=== PATIENT | male | born 1980 | race Caucasian/White ===

== ENCOUNTER 2019-03-14 18:49 | Emergency (ER) | payer SELFPAY ==
[2019-03-14] MEDS ORDERED: AMLODIPINE 5 MG TAB ONE ×2 (19:51→21:43)
[2019-03-14] MEDS ORDERED: DIPHENHYDRAMINE 50 MG/ML VIAL ONE (19:51)
[2019-03-14] MEDS ORDERED: METOCLOPRAMIDE 10 MG/2mL INJ ONE ×2 (19:51→21:50)
[2019-03-14 19:52] LABS: Absolute Lymphocytes (CBC) 1.5 K/uL (0.7-4.9); Basophils % 0.2 % (0-1.3); Eosinophils % 1.4 % (0-4.4); Hematocrit 47.4 % (39.6-49.0); Lymphocytes % 12.5 % (15.3-44.8); Monocytes % 5.1 % (3.3-12.3); RBC Red Blood Cell Count 5.64 M/uL (4.33-5.43)
[2019-03-14] MEDS ORDERED: NA CHLORIDE 0.9% 1,000 ML ONE (19:52)
[2019-03-14] MEDS ORDERED: KETOROLAC 30 MG/ML INJ ONE (19:52)
[2019-03-14 20:08] LABS: Albumin 4.1 g/dL (3.4-5.0); Bilirubin Total 0.8 mg/dL (0.2-1.0); Potassium 3.8 mmol/L (3.5-5.1); Protein, Total 7.6 g/dL (6.4-8.2); Troponin (Emerg Dept Use Only) 0.04 ng/mL (0.0-0.045)
--- NOTE | 2019-03-14 21:59 | EDPHYS ---
Physician Documentation [facility] Name: Quan Hernandez Age: 38 yrs Sex: Male : 1980 Arrival Date: 03/14/2019 Time: 18:51 Bed 15 Private MD: ED Physician Avis Fofana HPI: 03/14 21:53 This 38 yrs old Male presents to ER via Ambulatory with complaints of High ma2 Blood Pressure, Headache, Nausea. 21:53 This 38 yrs old Male presents to ER via Ambulatory with complaints of High ma2 Blood Pressure, Headache, Nausea. 21:53 Onset: The symptoms/episode began/occurred gradually, 2 day(s) ago. Modifying factors: ma2 The symptoms are alleviated by prescription meds. Associated signs and symptoms: Pertinent negatives: dizziness, headache, nausea, vomiting. Severity of symptoms: At its worst the blood pressure was moderate, in the emergency department the blood pressure is unchanged. The patient has experienced similar episodes in the past. headache gradual similar to previous headaches . Historical: - Allergies: 19:04 No Known Allergies; lp1 - Home Meds: 19:04 None [Active]; lp1 - PMHx: 19:04 Hypertension; lp1 - PSHx: 19:04 None; lp1 - Immunization history:: Adult Immunizations up to date. - Social history:: Smoking status: Patient/guardian denies using tobacco, Patient/guardian denies using alcohol, street drugs, The patient lives with family. - Ebola Screening: : No symptoms or risks identified at this time. - Family history:: not pertinent. ROS: 21:53 Constitutional: Negative for fever, chills, and weight loss, Eyes: Negative for injury, ma2 pain, redness, and discharge, Neck: Negative for injury, pain, and swelling, Cardiovascular: Negative for chest pain, palpitations, and edema, Respiratory: Negative for shortness of breath, cough, wheezing, and pleuritic chest pain, Abdomen/GI: Negative for abdominal pain, nausea, diarrhea, and constipation, Back: Negative for injury and pain, MS/Extremity: Negative for injury and deformity, Neuro: Negative for headache, weakness, numbness, tingling, and seizure, Psych: Negative for depression, anxiety, suicide ideation, homicidal ideation, and hallucinations, Allergy/Immunology: Negative for hives, rash, and allergies. Exam: 21:53 Constitutional: This is a well developed, well nourished patient who is awake, alert, ma2 and in no acute distress. Head/Face: Normocephalic, atraumatic. ENT: Nares patent. No nasal discharge, no septal abnormalities noted. Tympanic membranes are normal and external auditory canals are clear. Oropharynx with no redness, swelling, or masses, exudates, or evidence of obstruction, uvula midline. Mucous membranes moist. Neck: Trachea midline, no thyromegaly or masses palpated, and no cervical lymphadenopathy. Supple, full range of motion without nuchal rigidity, or vertebral point tenderness. No Meningismus. Chest/axilla: Normal chest wall appearance and motion. Nontender with no deformity. No lesions are appreciated. Cardiovascular: Regular rate and rhythm with a normal S1 and S2. No gallops, murmurs, or rubs. Normal PMI, no JVD. No pulse deficits. Respiratory: Lungs have equal breath sounds bilaterally, clear to auscultation and percussion. No rales, rhonchi or wheezes noted. No increased work of breathing, no retractions or nasal flaring. Abdomen/GI: Soft, non-tender, with normal bowel sounds. No distension or tympany. No guarding or rebound. No evidence of tenderness throughout. MS/ Extremity: Pulses equal, no cyanosis. Neurovascular intact. Full, normal range of motion. Neuro: Awake and alert, GCS 15, oriented to person, place, time, and situation. Cranial nerves II-XII grossly intact. Motor strength 5/5 in all extremities. Sensory grossly intact. Cerebellar exam normal. Normal gait. Vital Signs: 19:03 BP 222 / 114; Pulse 77; Resp 20; Temp 98.6(O); Pulse Ox 100% on R/A; Weight 172.37 kg; lp1 Height 6 ft. 3 in. (190.50 cm); Pain 8/10; 19:30 BP 204 / 120; Pulse 69; Resp 14; Pulse Ox 99% on R/A; jb4 20:16 BP 187 / 104; Pulse 69; Resp 17; Pulse Ox 99% on R/A; jb4 21:00 BP 201 / 101; Pulse 73; Resp 13; Pulse Ox 100% on R/A; jb4 21:58 BP 187 / 94; Pulse 73; Resp 13; Pulse Ox 99% on R/A; jb4 19:03 Body Mass Index 47.50 (172.37 kg, 190.50 cm) lp1 MDM: 19:06 Patient medically screened. ma2 21:53 Differential diagnosis: migraine headache vs caffeine withdrawal vs tension headache. ma2 Data reviewed: vital signs, nurses notes, old medical records, lab test result(s), radiologic studies. Counseling: I had a detailed discussion with the patient and/or guardian regarding: the historical points, exam findings, and any diagnostic results supporting the discharge/admit diagnosis, the presence of at least one elevated blood pressure reading (>120/80) during this emergency department visit, the need for outpatient follow up. Response to treatment: the patient's symptoms have markedly improved after treatment. ED course: patient headache resolved has hx of htn not taking his home meds, we lowered 30% off map, no end organ damage on lab, his symptoms resolved and want to go home . 03/14 19:31 Order name: CBC with Diff; Complete Time: 20:21 nh2 03/14 19:31 Order name: CMP; Complete Time: 20:21 nh2 03/14 19:31 Order name: Troponin (emerg Dept Use Only); Complete Time: 20:21 nh2 03/14 19:40 Order name: CT Head Brain wo Cont ma2 Administered Medications: 19:40 Drug: Norvasc 5 mg Route: PO; jb4 20:15 Follow up: Response: No adverse reaction; Blood pressure is lowered jb4 19:41 Drug: TORadol 30 mg Route: IVP; Site: right antecubital; jb4 20:55 Follow up: Response: No adverse reaction; Pain is decreased jb4 19:42 Drug: Benadryl 50 mg Route: IVP; Site: right antecubital; jb4 20:54 Follow up: Response: No adverse reaction; Pain is decreased jb4 19:43 Drug: Reglan 10 mg Route: IVP; Site: right antecubital; jb4 20:55 Follow up: Response: No adverse reaction; Pain is decreased jb4 19:45 Drug: NS 0.9% 1000 ml Route: IV; Rate: 1 bolus; Site: right antecubital; jb4 22:00 Follow up: Response: No adverse reaction; IV Status: Completed infusion; IV Intake: jb4 1000ml 21:30 Drug: Norvasc 5 mg Route: PO; jb4 22:15 Follow up: Response: No adverse reaction; Blood pressure is lowered jb4 21:43 Drug: Reglan 10 mg Route: IVP; Site: right antecubital; jb4 22:16 Follow up: Response: No adverse reaction jb4 22:15 Not Given (medication not available): Caffeine-Sodium Benzoate 500 mg IV at per jb4 protocol once Disposition: 03/14/19 21:58 Discharged to Home. Impression: Migraine without aura, Essential (primary) hypertension. - Condition is Stable. - Discharge Instructions: Hypertension. - Prescriptions for caffeine- sodium benzoate - take 1 tablet by ORAL route 4 times per day; 30 tablet. Norvasc 5 mg Oral Tablet - take 1 tablet by ORAL route once daily; 20 tablet. Reglan 10 mg Oral Tablet - take 1 tablet by ORAL route every 6 hours . take 30 minutes before meals and at bedtime; 100 tablet. - Medication Reconciliation Form, Thank You Letter, Antibiotic Education, Prescription Opioid Use form. - Follow up: Private Physician; When: Tomorrow; Reason: Continuance of care. Signatures: Dispatcher [employer] EDLoren Alaniz RN RN lp1 Darryl Skinner RN RN jb4 Avis Fofana MD MD ma2 Corrections: (The following items were deleted from the chart) 22:18 21:58 03/14/2019 21:58 Discharged to Home. Impression: Migraine without aura; Essential jb4 (primary) hypertension. Condition is Stable. Prescriptions for caffeine-sodium benzoate - take 1 tablet by ORAL route 4 times per day; 30 tablet, Norvasc 5 mg Oral Tablet - take 1 tablet by ORAL route once daily; 20 tablet, Reglan 10 mg Oral Tablet - take 1 tablet by ORAL route every 6 hours . take 30 minutes before meals and at bedtime; 100 tablet. and Forms are Medication Reconciliation Form, Thank You Letter, Antibiotic Education, Prescription Opioid Use. Follow up: Private Physician; When: Tomorrow; Reason: Continuance of care. ma2
--- NOTE | 2019-03-14 21:59 | ER ---
Nurse's Notes [facility] Name: Quan Hernandez Age: 38 yrs Sex: Male : 1980 Arrival Date: 03/14/2019 Time: 18:51 Bed 15 Private MD: Diagnosis: Migraine without aura;Essential (primary) hypertension Presentation: 03/14 19:02 Presenting complaint: Patient states: Just returning from vacation in [place], [facility] lp1 eating badly there and has had headache, high blood pressure, shortness of breath since Sunday; Took BP at home 222/122. Transition of care: patient was not received from another setting of care. Onset of symptoms was March 14, 2019. Risk Assessment: Do you want to hurt yourself or someone else? Patient reports no desire to harm self or others. Initial Sepsis Screen: Does the patient meet any 2 criteria? No. Patient's initial sepsis screen is negative. Does the patient have a suspected source of infection? No. Patient's initial sepsis screen is negative. Care prior to arrival: None. 19:02 Method Of Arrival: Ambulatory lp1 19:02 Acuity: DINESH 2 lp1 Historical: - Allergies: 19:04 No Known Allergies; lp1 - Home Meds: 19:04 None [Active]; lp1 - PMHx: 19:04 Hypertension; lp1 - PSHx: 19:04 None; lp1 - Immunization history:: Adult Immunizations up to date. - Social history:: Smoking status: Patient/guardian denies using tobacco, Patient/guardian denies using alcohol, street drugs, The patient lives with family. - Ebola Screening: : No symptoms or risks identified at this time. - Family history:: not pertinent. Screenin:04 Abuse screen: Denies threats or abuse. Denies injuries from another. Nutritional lp1 screening: No deficits noted. Tuberculosis screening: No symptoms or risk factors identified. Fall Risk None identified. Assessment: 19:10 General: Appears in no apparent distress. uncomfortable, Behavior is calm, cooperative, jb4 appropriate for age. Pain: Complains of pain in headache. Pain does not radiate. Pain currently is 8 out of 10 on a pain scale. Quality of pain is described as throbbing. Neuro: Level of Consciousness is awake, alert, obeys commands, Oriented to person, place, time, situation. Cardiovascular: Heart tones S1 S2 present Patient's skin is warm and dry. Respiratory: Airway is patent Respiratory effort is even, unlabored, Respiratory pattern is regular, symmetrical, Breath sounds are clear. GI: Reports nausea. : No signs and/or symptoms were reported regarding the genitourinary system. EENT: No signs and/or symptoms were reported regarding the EENT system. Derm: Skin is intact, Skin is pink, warm \T\ dry. Musculoskeletal: Circulation, motion, and sensation intact. Range of motion: intact in all extremities. 19:55 Reassessment: Pt to CT. jb4 20:17 Reassessment: Patient appears in no apparent distress at this time. Patient and/or jb4 family updated on plan of care and expected duration. Pain level reassessed. Patient is alert, oriented x 3, equal unlabored respirations, skin warm/dry/pink. PT is back in bed resting with family at the bedside. 20:53 Reassessment: Patient appears in no apparent distress at this time. Patient and/or jb4 family updated on plan of care and expected duration. Pain level reassessed. Patient is alert, oriented x 3, equal unlabored respirations, skin warm/dry/pink. Patient states feeling better. 21:05 Reassessment: Pt's blood pressure increased to 201/101, provider notified, see MAR for jb4 orders. 22:14 Reassessment: Patient appears in no apparent distress at this time. Patient and/or jb4 family updated on plan of care and expected duration. Pain level reassessed. Patient is alert, oriented x 3, equal unlabored respirations, skin warm/dry/pink. PT left ED ambulatory with steady gait, verbalized understanding of d/c and follow up instructions. Patient states feeling better. Vital Signs: 19:03 BP 222 / 114; Pulse 77; Resp 20; Temp 98.6(O); Pulse Ox 100% on R/A; Weight 172.37 kg; lp1 Height 6 ft. 3 in. (190.50 cm); Pain 8/10; 19:30 BP 204 / 120; Pulse 69; Resp 14; Pulse Ox 99% on R/A; jb4 20:16 BP 187 / 104; Pulse 69; Resp 17; Pulse Ox 99% on R/A; jb4 21:00 BP 201 / 101; Pulse 73; Resp 13; Pulse Ox 100% on R/A; jb4 21:58 BP 187 / 94; Pulse 73; Resp 13; Pulse Ox 99% on R/A; jb4 19:03 Body Mass Index 47.50 (172.37 kg, 190.50 cm) lp1 ED Course: 18:51 Patient arrived in ED. rg4 18:55 Darryl Skinner, RN is Primary Nurse. jb4 19:03 Triage completed. lp1 19:03 Arm band placed on. lp1 19:06 Avis Fofana MD is Attending Physician. ma2 19:10 Patient has correct armband on for positive identification. Bed in low position. Call jb4 light in reach. Side rails up X 1. monitoring and evaluation advisor on. Pulse ox on. NIBP on. 19:20 Inserted saline lock: 22 gauge in right antecubital area, using aseptic technique. jb4 Blood collected. 19:20 Initial lab(s) drawn, by ED staff, sent to lab. jb4 20:20 CT Head Brain wo Cont In Process Unspecified. EDMS 22:13 No provider procedures requiring assistance completed. IV discontinued, intact, jb4 bleeding controlled. Administered Medications: 19:40 Drug: Norvasc 5 mg Route: PO; jb4 20:15 Follow up: Response: No adverse reaction; Blood pressure is lowered jb4 19:41 Drug: TORadol 30 mg Route: IVP; Site: right antecubital; jb4 20:55 Follow up: Response: No adverse reaction; Pain is decreased jb4 19:42 Drug: Benadryl 50 mg Route: IVP; Site: right antecubital; jb4 20:54 Follow up: Response: No adverse reaction; Pain is decreased jb4 19:43 Drug: Reglan 10 mg Route: IVP; Site: right antecubital; jb4 20:55 Follow up: Response: No adverse reaction; Pain is decreased jb4 19:45 Drug: NS 0.9% 1000 ml Route: IV; Rate: 1 bolus; Site: right antecubital; jb4 22:00 Follow up: Response: No adverse reaction; IV Status: Completed infusion; IV Intake: jb4 1000ml 21:30 Drug: Norvasc 5 mg Route: PO; jb4 22:15 Follow up: Response: No adverse reaction; Blood pressure is lowered jb4 21:43 Drug: Reglan 10 mg Route: IVP; Site: right antecubital; jb4 22:16 Follow up: Response: No adverse reaction jb4 22:15 Not Given (medication not available): Caffeine-Sodium Benzoate 500 mg IV at per jb4 protocol once Intake: 22:00 IV: 1000ml; Total: 1000ml. jb4 Outcome: 21:58 Discharge ordered by . joel 22:14 Discharged to home ambulatory. jb4 22:14 Condition: stable 22:14 Discharge instructions given to patient, Instructed on discharge instructions, follow up and referral plans. medication usage, Demonstrated understanding of instructions, follow-up care, medications, Prescriptions given X 3. 22:18 Patient left the ED. jb4 Signatures: Dispatcher [employer] EDMS Loren Rodriguez, RN RN [email or web address] Sirisha Gleason rg4 Darryl Skinner RN RN jb4 Avis Fofana MD MD ma
--- NOTE | 2019-03-15 07:46 | EKG ---
Test Date: 2019-03-14 Test Time: 19:11:28 Telecommunication Systems Designer: TONE MEASUREMENT RESULTS: Intervals: Rate: 67 AL: 136 QRSD: 104 QT: 430 QTc: 454 [place]: P: 48 AL: 136 QRS: -13 T: 146 INTERPRETIVE STATEMENTS: Normal sinus rhythm Possible Left atrial enlargement Left ventricular hypertrophy with repolarization abnormality Abnormal ECG No previous ECG available for comparison Electronically Signed On 03-15-19 07:45:54 CDT by Abhilash Sanon
--- NOTE | 2019-03-17 13:39 | RAD REPORT ---
EXAM DESCRIPTION: CT - Head Brain Wo Cont - 03/14/2019 9:51 pm CLINICAL HISTORY: 38 years Male PAIN COMPARISON: None TECHNIQUE: Images were obtained in axial, sagittal, and coronal planes. This exam was performed according to our departmental dose-optimization program which includes use of Automated Exposure Control, adjustment of the mA and/or kV according to patient size and/or use of i terative reconstruction technique. FINDINGS: Ventricular system appears normal. No abnormal areas of increased or decreased attenuation are seen involving the brain parenchyma. No e xtra-axial fluid collections noted. Marked mucosal thickening left maxillary antrum. Inspissated mucous versus blood products present. Ad ditional mucosal thickening inferior left frontal and left ethmoid sinuses. Symmetric aeration mastoi d air cells bilaterally. No evidence for skull fracture. IMPRESSION: No acute intracranial abnormality. No evidence for hemorrhage, mass lesion, or large acu te infarction. Paranasal sinus disease most pronounced involving the left maxillary antrum. 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 Electronically signed by: Cassandra Dukes MD 03/14/2019 8:25 PM CDT Due to temporary technical issues with the PACS/Fluency reporting system, reports are being signed by the in house radiologist as a courtesy to ensure prompt reporting. The interpreting radiologist is f ully responsible for the content of the report.
== END 2019-03-14 22:18 | disposition home or self-care (01) ==
LOC: ER 18:49
DX: G43.009 Migraine without aura, not intractable, without status migrainosus (principal); I10 Essential (primary) hypertension
CPT/HCPCS: 36415; 70450; 80053; 84484; 85025; 93005; 96361; 96374; 96375; 99284; J2765; J7030

== ENCOUNTER 2020-10-24 19:03 | Inpatient (IN) | payer SELFPAY ==
[2020-10-24 20:01] LABS: Absolute Lymphocytes (CBC) 2.1 K/uL (0.7-4.9); Basophils % 0.5 % (0-1.3); Hematocrit 46.7 % (39.6-49.0); Lymphocytes % 17.2 % (15.3-44.8); MPV 10.1 fL (7.6-11.3); RBC Red Blood Cell Count 5.48 M/uL (4.33-5.43)
[2020-10-24] MEDS ORDERED: DIPHENHYDRAMINE 50 MG/ML VIAL ONE (20:20)
[2020-10-24] MEDS ORDERED: METOCLOPRAMIDE 10 MG/2mL INJ ONE (20:20)
[2020-10-24 20:21] LABS: Albumin 3.9 g/dL (3.4-5.0); Bilirubin Direct 0.1 mg/dL (0-0.2); Bilirubin Total 0.3 mg/dL (0.2-1.0); Magnesium 2.4 mg/dL (1.8-2.4); Potassium 3.8 mmol/L (3.5-5.1); Protein, Total 7.6 g/dL (6.4-8.2); Troponin (Emerg Dept Use Only) 0.05 ng/mL (0.0-0.045)
[2020-10-24 20:23] LABS: Protime INR 0.92
[2020-10-24 20:44] LABS: Urine Blood TRACE (NEG); Urine Glucose NEGATIVE (NEG); Urine Protein TRACE (NEG); Urine Specific Gravity 1.025 (1.005-1.030)
--- NOTE | 2020-10-24 20:45 | RAD REPORT ---
EXAM DESCRIPTION: CT - Head Brain Wo Cont - 10/24/2020 8:35 pm CLINICAL HISTORY: Headache COMPARISON: 2019 TECHNIQUE: Computed axial tomography of the head was obtained. IV contrast was not requested. All CT scans are performed using dose optimization technique as appropriate and may include automated exposure control or mA/KV adjustment according to patient size. FINDINGS: An intracranial bleed is not seen . The ventricles are normal in caliber. No extra-axial fluid collection is noted. Fluid within the sinuses/ mastoids is not seen. Mucus retention cysts left maxillary sinus IMPRESSION: No acute intracranial abnormality is seen. If patient's symptoms persist MRI of the bra in would be recommended.
[2020-10-24] MEDS ORDERED: NITROGLYCERIN 1 GM PKT TD ONE (20:55)
[2020-10-24 20:56] LABS: Barbiturates NEGATIVE (NEGATIVE); Benzodiazepines NEGATIVE (NEGATIVE); Cocaine NEGATIVE (NEGATIVE); METHAMPHETAM NEGATIVE (NEGATIVE); Methadone NEGATIVE (NEGATIVE); Opiates NEGATIVE (NEGATIVE); Phencyclidine NEGATIVE (NEGATIVE); THC Cannibis NEGATIVE (NEGATIVE)
--- NOTE | 2020-10-24 21:07 | RAD REPORT ---
EXAM DESCRIPTION: Jeb Single View10/24/2020 8:50 pm CLINICAL HISTORY: Chest pain COMPARISON: none FINDINGS: The lungs appear clear of acute infiltrate. The heart is normal size IMPRESSION: No acute abnormalities displayed
[2020-10-24] MEDS ORDERED: ASPIRIN 81 MG CHEWABLE TABLET ONE (22:04)
[2020-10-24] MEDS ORDERED: ACETAMINOPHEN 500 MG TAB PO PRN (22:07)
--- NOTE | 2020-10-24 22:07 | EDPHYS ---
Physician Documentation [facility] Name: Quan Hernandez Age: 39 yrs Sex: Male : 1980 Arrival Date: 10/24/2020 Time: 19:06 Bed 13 Private MD: ED Physician Patricio David HPI: 10/24 20:01 This 39 yrs old Male presents to ER via Ambulatory with complaints of High mh7 Blood Pressure, Chest Pain. 20:02 The patient has elevated blood pressure and discovered this at home, with a home mh7 device. Onset: The symptoms/episode began/occurred 6 day(s) ago. Modifying factors: The symptoms are aggravated by discontinuation of meds, unknown, hasn't taken for 6 weeks- 2 months, The symptoms are alleviated by nothing. Hasn't taken any medication.. Associated signs and symptoms: Pertinent positives: chest pain, headache, Pertinent negatives: dizziness, dyspnea, lightheadedness, nausea, visual changes, vomiting, weakness. Severity of symptoms: At its worst the blood pressure was severe, earlier today, 224 mm Hg, in the emergency department the blood pressure is unchanged. The patient has experienced similar episodes in the past, multiple times. Historical: - Allergies: 19:20 No Known Allergies; ll1 - PMHx: 19:15 Hypertension; ll1 - PSHx: 19:15 None; ll1 - Immunization history:: Flu vaccine is not up to date. - Social history:: Smoking status: Patient denies any tobacco usage or history of. ROS: 20:02 Constitutional: Negative for fever, chills, and weight loss, Eyes: Negative for injury, mh7 pain, redness, and discharge, ENT: Negative for injury, pain, and discharge, Neck: Negative for injury, pain, and swelling, Respiratory: Negative for shortness of breath, cough, wheezing, and pleuritic chest pain, Abdomen/GI: Negative for abdominal pain, nausea, vomiting, diarrhea, and constipation, Back: Negative for injury and pain, : Negative for injury, bleeding, discharge, and swelling, MS/Extremity: Negative for injury and deformity, Skin: Negative for injury, rash, and discoloration, Psych: Negative for depression, anxiety, suicide ideation, homicidal ideation, and hallucinations, Allergy/Immunology: Negative for hives, rash, and allergies, Endocrine: Negative for neck swelling, polydipsia, polyuria, polyphagia, and marked weight changes, Hematologic/Lymphatic: Negative for swollen nodes, abnormal bleeding, and unusual bruising. Exam: 20:02 Constitutional: This is a well developed, well nourished patient who is awake, alert, mh7 and in no acute distress. Head/Face: Normocephalic, atraumatic. Eyes: Pupils equal round and reactive to light, extra-ocular motions intact. Lids and lashes normal. Conjunctiva and sclera are non-icteric and not injected. Cornea within normal limits. Periorbital areas with no swelling, redness, or edema. Neck: Trachea midline, no thyromegaly or masses palpated, and no cervical lymphadenopathy. Supple, full range of motion without nuchal rigidity, or vertebral point tenderness. No Meningismus. Chest/axilla: Normal chest wall appearance and motion. Nontender with no deformity. No lesions are appreciated. Cardiovascular: Regular rate and rhythm with a normal S1 and S2. No gallops, murmurs, or rubs. Normal PMI, no JVD. No pulse deficits. Respiratory: Lungs have equal breath sounds bilaterally, clear to auscultation and percussion. No rales, rhonchi or wheezes noted. No increased work of breathing, no retractions or nasal flaring. Abdomen/GI: Soft, non-tender, with normal bowel sounds. No distension or tympany. No guarding or rebound. No evidence of tenderness throughout. Back: No spinal tenderness. No costovertebral tenderness. Full range of motion. Skin: Warm, dry with normal turgor. Normal color with no rashes, no lesions, and no evidence of cellulitis. MS/ Extremity: Pulses equal, no cyanosis. Neurovascular intact. Full, normal range of motion. Neuro: Awake and alert, GCS 15, oriented to person, place, time, and situation. Cranial nerves II-XII grossly intact. Motor strength 5/5 in all extremities. Sensory grossly intact. Cerebellar exam normal. Normal gait. Psych: Awake, alert, with orientation to person, place and time. Behavior, mood, and affect are within normal limits. Vital Signs: 19:16 BP 253 / 121; Pulse 76; Resp 18; Temp 97.8; Pulse Ox 98% ; Weight 183.7 kg; Height 6 ll1 ft. 3 in. (190.50 cm); Pain 9/10; 19:30 BP 244 / 138; Pulse 76; Resp 20; Pulse Ox 99% on R/A; vg1 20:24 BP 207 / 119; ll1 21:00 BP 226 / 127; Pulse 66; Resp 26; Pulse Ox 98% on R/A; vg1 21:20 BP 226 / 120; Pulse 70; Resp 26; Pulse Ox 98% on R/A; vg1 19:16 Body Mass Index 50.62 (183.70 kg, 190.50 cm) 1 MDM: 22:03 Differential diagnosis: hypertensive crisis, Malignant HTN, intracerebral hemorrhage. [facility] Data reviewed: vital signs, nurses notes, old medical records, lab test result(s), cardiac enzymes, CBC, electrolytes, urinalysis, urine drug screen, EKG, radiologic studies, CT scan, plain films. Data interpreted: Pulse oximetry: on room air is 98 %. Interpretation: normal. Counseling: I had a detailed discussion with the patient and/or guardian regarding: the historical points, exam findings, and any diagnostic results supporting the discharge/admit diagnosis, the presence of at least one elevated blood pressure reading (>120/80) during this emergency department visit, lab results, the need for further work-up and treatment in the hospital. Response to treatment: the patient's symptoms have mildly improved after treatment. 22:06 Patient medically screened. [facility] 10/24 19:49 Order name: Basic Metabolic Panel [facility] 10/24 19:49 Order name: CBC with Diff [facility] 10/24 19:49 Order name: LFT's; Complete Time: 20:24 [facility] 10/24 19:49 Order name: Magnesium; Complete Time: 20:24 [facility] 10/24 19:49 Order name: NT PRO-BNP; Complete Time: 20:24 [facility] 10/24 19:49 Order name: PT-INR; Complete Time: 21:18 [facility] 10/24 19:49 Order name: Troponin (emerg Dept Use Only); Complete Time: 20:24 [facility] 10/24 19:49 Order name: CPK; Complete Time: 20:24 [facility] 10/24 19:49 Order name: UDS; Complete Time: 21:18 [facility] 10/24 19:50 Order name: Basic Metabolic Panel; Complete Time: 20:24 [facility] 10/24 19:50 Order name: CBC with Automated Diff; Complete Time: 20:24 [facility] 10/24 20:37 Order name: Urine Dipstick--Ancillary (enter results); Complete Time: 21:18 2 10/24 22:11 Order name: CKMB Creatine Kinase MB [facility] 10/24 22:11 Order name: CKMB Creatine Kinase MB [facility] 10/24 22:12 Order name: CBC with Automated Diff [facility] 10/24 22:12 Order name: CBC with Automated Diff [facility] 10/24 22:12 Order name: CKMB Creatine Kinase MB [facility] 10/24 22:12 Order name: CKMB Creatine Kinase MB [facility] 10/24 22:12 Order name: Comprehensive Metabolic Panel [facility] 10/24 22:12 Order name: Comprehensive Metabolic Panel [facility] 10/24 22:12 Order name: Lipid Profile [facility] 10/24 22:12 Order name: Lipid Profile [facility] 10/24 22:12 Order name: Troponin I [facility] 10/24 22:12 Order name: Troponin I [facility] 10/24 22:12 Order name: Troponin I [facility] 10/24 22:13 Order name: Urinalysis [facility] 10/24 22:15 Order name: CORONAVIRUS [facility] 10/24 23:13 Order name: SARS-COV-2 RT PCR [facility] 10/25 05:40 Order name: CKMB Creatine Kinase MB [facility] 10/25 05:40 Order name: Troponin I [facility] 10/24 19:49 Order name: XRAY Chest (1 view); Complete Time: 21:18 [facility] 10/24 19:49 Order name: EKG; Complete Time: 19:50 [facility] 10/24 19:49 Order name: Cardiac monitoring; Complete Time: 19:53 [facility] 10/24 19:49 Order name: EKG - Nurse/Tech; Complete Time: 19:53 [facility] 10/24 19:49 Order name: IV Saline Lock; Complete Time: 19:53 10/24 19:49 Order name: Labs collected and sent; Complete Time: 19:53 [facility] 10/24 19:49 Order name: O2 Per Protocol; Complete Time: 19:53 [facility] 10/24 19:49 Order name: O2 Sat Monitoring; Complete Time: 19:54 10/24 19:49 Order name: Urine Dipstick-Ancillary (obtain specimen); Complete Time: 20:36 [facility] 10/24 19:53 Order name: CT Head Brain wo Cont; Complete Time: 21:18 [facility] 10/24 22:12 Order name: CONS Pharmacy Consult [facility] 10/24 22:12 Order name: [facility] 10/25 07:44 Order name: Manual Differential [facility] 10/25 16:43 Order name: CT [facility] 10/25 18:37 Order name: Troponin I [facility] Administered Medications: 20:09 Drug: Benadryl 50 mg Route: IVP; Site: right antecubital; ea 20:09 Drug: Tylenol 1000 mg Route: PO; ea 20:10 Drug: Reglan 10 mg Route: IVP; Site: right antecubital; ea 20:45 Drug: Nitro-Bid Ointment 2 % 1 inches Route: Transdermal; Site: anterior chest wall; vg1 21:50 Drug: Aspirin Chewable Tablet 324 mg Route: PO; ea Disposition: 10/24/20 22:06 Hospitalization ordered by Jimi Best for Observation. Preliminary diagnosis are Chest pain, unspecified, Headache, Uncontrolled Hypertension. - Bed requested for [facility] ER HOLD. - Status is Observation. iw - Condition is Stable. - Problem is new. - Symptoms have improved. Signatures: Dispatcher [employer] [facility] Shantel Arteaga RN Dina Love RN [place] RN Jessy Alfaro ea RN MARTY [email or web address] Steve Cote RN RN 1 Patricio David MD MD [facility] Corrections: (The following items were deleted from the chart) 22:07 22:06 Hospitalization Ordered by Jimi Best MD for Observation. Preliminary mw diagnosis is Chest pain, unspecified; Headache; Uncontrolled Hypertension. Bed requested for Telemetry/MedSurg (observation). Status is Observation. Condition is Stable. Problem is new. Symptoms have improved. [facility] 10/26 09:35 10/24 22:07 10/24/2020 22:06 Hospitalization Ordered by Jimi Best MD for iw Observation. Preliminary diagnosis is Chest pain, unspecified; Headache; Uncontrolled Hypertension. Bed requested for [facility] ER HOLD. Status is Observation. Condition is Stable. Problem is new. Symptoms have improved. mw
--- NOTE | 2020-10-24 22:07 | ER ---
Nurse's Notes [facility] Name: Quan Hernandez Age: 39 yrs Sex: Male : 1980 Arrival Date: 10/24/2020 Time: 19:06 Bed 13 Private MD: Diagnosis: Chest pain, unspecified;Headache;Uncontrolled Hypertension Presentation: 10/24 19:16 Chief complaint: Patient states: HTN, OLEARY, and CP for 6 days. BP at home 224/124. out OF ll1 MEDS FOR 6 WEEKS. Coronavirus screen: Client denies travel out of the [place] in the last 14 days. Ebola Screen: Patient denies travel to an Ebola-affected area in the 21 days before illness onset. Initial Sepsis Screen: Does the patient meet any 2 criteria? No. Patient's initial sepsis screen is negative. Initial Sepsis Screen: Does the patient have a suspected source of infection? No. Patient's initial sepsis screen is negative. Risk Assessment: Do you want to hurt yourself or someone else? Patient reports no desire to harm self or others. Onset of symptoms was October 18, 2020. 19:16 Method Of Arrival: Ambulatory ll1 19:16 Acuity: DINESH 3 ll1 Historical: - Allergies: 19:20 No Known Allergies; ll1 - PMHx: 19:15 Hypertension; ll1 - PSHx: 19:15 None; ll1 - Immunization history:: Flu vaccine is not up to date. - Social history:: Smoking status: Patient denies any tobacco usage or history of. Screenin:32 Abuse screen: Denies threats or abuse. Nutritional screening: No deficits noted. ea Tuberculosis screening: No symptoms or risk factors identified. Fall Risk IV access (20 points). Assessment: 19:28 General: Appears in no apparent distress. comfortable, Behavior is calm, cooperative. vg1 Pain: Complains of pain in headache Pain began Sunday10/18/20. Neuro: Level of Consciousness is awake, alert, obeys commands, Oriented to person, place, time, situation. Cardiovascular: Patient's skin is warm and dry. Rhythm is sinus rhythm. Respiratory: Airway is patent Respiratory effort is even, unlabored, Respiratory pattern is regular, symmetrical. GI: No signs and/or symptoms were reported involving the gastrointestinal system. : No signs and/or symptoms were reported regarding the genitourinary system. EENT: No signs and/or symptoms were reported regarding the EENT system. Derm: Skin is intact, is healthy with good turgor. Musculoskeletal: Circulation, motion, and sensation intact. 21:25 Reassessment: No changes from previously documented assessment. Patient and/or family vg1 updated on plan of care and expected duration. Pain level reassessed. Patient is alert, oriented x 3, equal unlabored respirations, skin warm/dry/pink. 10/25 03:00 Pain: Pain does not radiate. wh Vital Signs: 10/24 19:16 BP 253 / 121; Pulse 76; Resp 18; Temp 97.8; Pulse Ox 98% ; Weight 183.7 kg; Height 6 ll1 ft. 3 in. (190.50 cm); Pain 9/10; 19:30 BP 244 / 138; Pulse 76; Resp 20; Pulse Ox 99% on R/A; vg1 20:24 BP 207 / 119; ll1 21:00 BP 226 / 127; Pulse 66; Resp 26; Pulse Ox 98% on R/A; vg1 21:20 BP 226 / 120; Pulse 70; Resp 26; Pulse Ox 98% on R/A; vg1 19:16 Body Mass Index 50.62 (183.70 kg, 190.50 cm) ll1 ED Course: 19:06 Patient arrived in ED. bp1 19:15 Arm band placed on. ll1 19:20 Triage completed. ll1 19:20 Patient placed in an exam room, on a stretcher. ll1 19:26 Patricio David MD is Attending Physician. 7 19:26 Jessy Gleason, MARTY is Primary Nurse. vg1 19:30 EKG done, by ED staff, reviewed by Patricio David MD. jp3 19:32 Inserted saline lock: 20 gauge in right antecubital area, using aseptic technique. ea 20:01 Patient has correct armband on for positive identification. Placed in gown. Bed in low vg1 position. Call light in reach. Side rails up X2. telemetry monitor on. Pulse ox on. NIBP on. 20:34 CT Head Brain wo Cont In Process Unspecified. EDMS 20:36 Urine collected: clean catch specimen, clear. em 20:50 XRAY Chest (1 view) In Process Unspecified. EDMS 22:04 Jimi Best MD is Hospitalizing Provider. 7 22:23 COVID swab sent to lab. jp3 10/25 03:00 No provider procedures requiring assistance completed. IV discontinued, intact, wh bleeding controlled, No redness/swelling at site. Patient maintains SpO2 saturation greater than 95% on room air. 08:17 Primary Nurse role handed off by Jessy Gleason RN bd Administered Medications: 10/24 20:09 Drug: Benadryl 50 mg Route: IVP; Site: right antecubital; ea 20:09 Drug: Tylenol 1000 mg Route: PO; ea 20:10 Drug: Reglan 10 mg Route: IVP; Site: right antecubital; ea 20:45 Drug: Nitro-Bid Ointment 2 % 1 inches Route: Transdermal; Site: anterior chest wall; vg1 21:50 Drug: Aspirin Chewable Tablet 324 mg Route: PO; ea Outcome: 22:06 Decision to Hospitalize by Provider. mh7 10/25 03:00 Admitted to ER Hold. Please see [facility] for further documentation. Condition: stable Instructed on the need for admit. 10/26 09:35 Patient left the ED. iw Signatures: Dispatcher [employer] EDMS Concepcion Rodriguez Edgar, RN Dina Dodge RN MARTY [place] RN RN ea Habalo, Winsy, RN RN wh Pisarski, Jacob 3 Jessy Gleason RN RN vg1 Steve Cote RN RN ll1 Rebeka Ley Maurice, MD MD [facility]
--- NOTE | 2020-10-24 22:16 | P.HP ---
Certification for Inpatient Patient admitted to: Observation With expected LOS: <2 Midnights Practitioner: I am a practitioner with admitting privileges, knowledge of patient current condition, hospital course, and medical plan of care. Services: Services provided to patient in accordance with Admission requirements found in Title 42 Section 412.3 of the Code of Federal Regulations Patient History Date of Service: 10/24/20 Reason for admission: Chest Pain History of Present Illness: 39-year-old male with past medical history hypertension came to ER wi th chest discomfort and high blood pressure. Chest pain is pressure-like retrosternal nonradiating not associated with any diaphoresis started 6 days ago, intermittent and has been associated with a headache. Denies any nausea vomiting or diarrhea. No fever or chills. No sick contacts. Denies any previous history of CAD. Has been noncompliant with his blood pressure medications, patient has been assessed in the ER and was admitted for further management as well troponins were slightly elevated. Patient was seen and examined and findings were discussed with the patient. his vitals showed accelerated hypertension and has been admitted to rule out ACS Allergies NKDA Allergy (Uncoded 08/06/15 05:10) Unknown - Past Medical/Surgical History Past Medical History: Reviewed- Non-Contributory Past Surgical History: Reviewed- Non-Contributory Review of Systems 10-point ROS is otherwise unremarkable Physical Examination - Vital Signs Temperature: 97.6 F Blood Pressure: 212/108 Pulse: 62 Respirations: 18 - Physical Exam General: Alert, Oriented x3, Obese HEENT: Atraumatic, Normocephalic Neck: Supple, 2+ carotid pulse no bruit Respiratory: Clear to auscultation bilaterally, Normal air movement Cardiovascular: Regular rate/rhythm, Normal S1 S2 Capillary refill: <2 Seconds Gastrointestinal: Soft and benign, W/out hepatosplenomegaly Musculoskeletal: No clubbing, No swelling Integumentary: No rashes, No breakdown Neurological: Normal speech, Normal strength at 5/5 x4 extr Lymphatics: No axilla or inguinal lymphadenopathy - Studies Laboratory Data (last 24 hrs) 10/24/20 19:50: PT 10.9, INR 0.92 10/24/20 19:50: WBC 12.00 H, Hgb 15.4, Hct 46.7, Plt Count 217 10/24/20 19:50: Sodium 140, Potassium 3.8, BUN 18, Creatinine 1.63 H, Glucose 113 H, Magnesium 2.4, Total Bilirubin 0.3, AST 17, ALT 29, Alkaline Phosphatase 84 Assessment and Plan - Problems (Diagnosis) (1) NSTEMI (non-ST elevated myocardial infarction) Current Visit: Yes Status: Acute Plan: Monitor under telemetry possibly type 2 due to elevated blood pressure Trend cardiac enzymes started on aspirin statin Will get an echocardiogram and consult cardiology if troponin is still elevated (2) Chest pain Current Visit: Yes Status: Acute Plan: Chest pain to rule out ACS monitor under telemetry On aspirin and statin may need stress test possibly as an outpatient EKG shows LVH with strain pattern (3) Accelerated hypertension Current Visit: Yes Status: Acute Plan: Start on antihypertensives Titrated as needed hydralazine p.r.n. Monitor closely (4) Obesity Current Visit: Yes Status: Chronic Plan: Advised lifestyle modification will get a lipid panel and A1c - Plan Elevated BNP Awaiting echocardiogram Start on diuretics Acute renal insufficiency Avoid nephrotoxic medications Will hold JAROD inhibitors or ARB Monitor renal parameters GI/DVT prophylaxis Discharge Plan: Home Plan to discharge in: 24 Hours - Advance Directives Does patient have a Living Will: No Does patient have a Durable POA for Healthcare: No Time Spent Managing Pts Care (In Minutes): 42
[2020-10-24] MEDS: AMLODIPINE 10 MG TAB PO SCH (22:45)
[2020-10-24] MEDS: HYDRALAZINE HCL 25 MG TABLET PO SCH (22:46)
[2020-10-24] MEDS ORDERED: HYDRALAZINE HCL 20 MG/ML VIAL ONE (22:55)
[2020-10-24] MEDS: FUROSEMIDE 20 MG/ 2ML VIAL IV SCH (23:18)
[2020-10-25] MEDS ORDERED: HYDRALAZINE HCL 20 MG/ML VIAL IV ONE (00:12)
[2020-10-25] MEDS: MORPHINE 2 MG/ML SYR IV PRN ×3 (00:13→16:06)
[2020-10-25] MEDS: ONDANSETRON 4 MG/2 ML VIAL IV PRN ×2 (00:14→16:06)
[2020-10-25] MEDS: HYDRALAZINE HCL 20 MG/ML VIAL IV PRN ×2 (00:16→16:11)
[2020-10-25] MEDS ORDERED: MORPHINE 4 MG/ML SYR ONE (00:16)
[2020-10-25] MEDS ORDERED: ONDANSETRON 4 MG/2 ML VIAL ONE ×2 (00:17→16:12)
[2020-10-25] MEDS ORDERED: AMLODIPINE 10 MG TAB ONE ×2 (00:43→08:34)
[2020-10-25] MEDS ORDERED: HYDRALAZINE HCL 10 MG TABLET ONE ×2 (00:43→23:37)
[2020-10-25] MEDS ORDERED: FUROSEMIDE 20 MG/ 2ML VIAL ONE ×2 (00:43→08:34)
[2020-10-25 01:55] LABS: CKMB Creatine Kinase MB 2.4 ng/mL (0.3-3.6); Troponin I 0.04 ng/mL (0.0-0.045)
[2020-10-25 05:13] LABS: Absolute Lymphocytes (CBC) 1.2 K/uL (0.7-4.9); Basophils % 0.5 % (0-1.3); Hematocrit 47.9 % (39.6-49.0); Lymphocytes % 8.7 % (15.3-44.8); MPV 9.7 fL (7.6-11.3); RBC Red Blood Cell Count 5.65 M/uL (4.33-5.43)
[2020-10-25 05:40] LABS: Albumin 3.9 g/dL (3.4-5.0); Bilirubin Total 0.6 mg/dL (0.2-1.0); CKMB Creatine Kinase MB 2.2 ng/mL (0.3-3.6); Potassium 4.1 mmol/L (3.5-5.1); Protein, Total 7.7 g/dL (6.4-8.2); Troponin I 0.03 ng/mL (0.0-0.045)
[2020-10-25 07:44] LABS: Blood Morphology Comment NOT SEEN (NOT SEEN); Platelet Estimate ADEQ
--- NOTE | 2020-10-25 08:19 | EKG ---
Test Date: 2020-10-24 Test Time: 19:34:07 Dental Treatment Coordinator: JAVON MEASUREMENT RESULTS: Intervals: Rate: 71 ND: 144 QRSD: 106 QT: 430 QTc: 467 [place]: P: 64 ND: 144 QRS: 5 T: 120 INTERPRETIVE STATEMENTS: Normal sinus rhythm Right atrial enlargement Left ventricular hypertrophy with repolarization abnormality Abnormal ECG Compared to ECG 03/14/2019 19:11:28 No significant changes Electronically Signed On 10-25-20 08:17:38 [employer] DIP[employer] by Abhilash Sanon
[2020-10-25] MEDS ORDERED: ASPIRIN EC 81 MG TAB PO ONE (08:34)
[2020-10-25] MEDS ORDERED: ENOXAPARIN 40 MG/0.4 ML SQ ONE (08:35)
[2020-10-25] MEDS ORDERED: MORPHINE 2 MG/ML SYR ONE ×2 (08:56→16:09)
[2020-10-25] MEDS ORDERED: ASPIRIN EC 81 MG TAB PO SCH (09:00)
[2020-10-25] MEDS: FUROSEMIDE 20 MG/ 2ML VIAL IV SCH (09:00)
[2020-10-25] MEDS: HYDRALAZINE HCL 25 MG TABLET PO SCH ×3 (09:00→23:25)
[2020-10-25] MEDS: AMLODIPINE 10 MG TAB PO SCH (09:00)
[2020-10-25] MEDS ORDERED: LOSARTAN POTASSIUM 50 MG TABLET PO SCH (09:00)
[2020-10-25] MEDS ORDERED: ENOXAPARIN 40 MG/0.4 ML SQ SCH (09:00)
[2020-10-25] MEDS ORDERED: TRAMADOL HCL 50 MG TAB PO PRN (09:27)
[2020-10-25] MEDS ORDERED: INFLUENZA VACCINE (for 3y+) 0.5 ML DOSE IMVAC ONE (11:00)
--- NOTE | 2020-10-25 11:29 | P.DS ---
Admission Date: 10/24/20 Discharge Date: 10/25/20 Primary Care Provider: Dr. Clifford Disposition: ROUTINE DISCHARGE Discharge Condition: GOOD Reason for Admission: Chest Pain Consultations: none Procedures: COVID: Positive CT Head: No acute abnormality. No significant fluid in the sinuses. Mucous retention cyst to the left maxillary sinus CXR: Unremarkable. No infiltrate noted. ECHO: Recommend to be done as an outpatient. Medical Problem List: Chest pain with uncontrolled hypertension COVID 19 positive, asymptomatic Allergic rhinitis Brief History of Present Illness: 39-year-old male with history of hypertension presented to the emergency room with chest pain and elevated blood pressure. Patient reports headache is well. He denies any nausea, vomiting. Patient ran out of his blood pressure medications. Patient admitted for further evaluation and treatment. Hospital Course: Patient presented with chest pain and elevated blood pressure. Patient with history of hypertension. Patient ran out of medication. The patient was admitted for further evaluation and treatment. Initial troponin 0.05. Repeat troponin thereafter were within normal range. EKG showed LV strain. Patient was started on Norvasc and hydralazine for better blood pressure control. Pressure improved. Patient previously on lisinopril hydrochlorothiazide 10/12.5 mg daily. Chest x-ray unremarkable. CT head unremarkable. Patient has done well. Blood pressure better controlled. At discharge patient will continue with Norvasc 10 mg 1 pill daily and hydralazine 50 mg 1 pill 3 times a day. Lisinopril hydrochlorothiazide has been discontinued. Recommend to monitor blood pressures at least once daily. May need to hold medication if blood pressure systolic less than 110. Recommend to maintain blood pressure less than 130/80. Further adjustment in medication can be done by his PCP. Recommend follow up with PCP in 1 week to follow up this hospitalization. Will recommend to continue aspirin 81 mg daily. Will also recommend that the patient establish care with Cardiology as an outpatient for better blood pressure control and for outpatient cardiac evaluation(to include echocardiogram, cardiac stress test). Vital Signs/Physical Exam: Temp Pulse Resp BP Pulse Ox 98.0 F 75 17 178/100 H 100 10/25/20 04:00 10/25/20 09:00 10/25/20 09:13 10/25/20 09:00 10/25/20 09:13 General: Alert, In no apparent distress, Oriented x3, Cooperative HEENT: Atraumatic Neck: Supple Respiratory: Clear to auscultation bilaterally, Normal air movement Cardiovascular: Normal pulses, Regular rate/rhythm Gastrointestinal: Normal bowel sounds, No tenderness, No masses, No rebound, No guarding Musculoskeletal: No erythema, No tenderness, No warmth Neurological: Normal speech, Normal strength at 5/5 x4 extr, Normal tone, Normal affect Laboratory Data at Discharge: WBC 13.60 K/uL (4.3-10.9) H 10/25/20 05:00 Hgb 15.4 g/dL (13.6-17.9) 10/25/20 05:00 Hct 47.9 % (39.6-49.0) 10/25/20 05:00 Plt Count 234 K/uL (152-406) 10/25/20 05:00 PT 10.9 SECONDS (9.5-12.5) 10/24/20 19:50 INR 0.92 10/24/20 19:50 Sodium 137 mmol/L (136-145) 10/25/20 05:00 Potassium 4.1 mmol/L (3.5-5.1) 10/25/20 05:00 BUN 16 mg/dL (7-18) 10/25/20 05:00 Creatinine 1.46 mg/dL (0.55-1.3) H 10/25/20 05:00 Glucose 134 mg/dL (74-106) H 10/25/20 05:00 Magnesium 2.4 mg/dL (1.8-2.4) 10/24/20 19:50 Total Bilirubin 0.6 mg/dL (0.2-1.0) 10/25/20 05:00 AST 14 U/L (15-37) L 10/25/20 05:00 ALT 28 U/L (12-78) 10/25/20 05:00 Alkaline Phosphatase 69 U/L (45-117) 10/25/20 05:00 Troponin I 0.03 ng/mL (0.0-0.045) 10/25/20 05:00 Troponin I Cancelled 10/25/20 05:00 Triglycerides 73 mg/dL (<150) 10/25/20 05:00 Cholesterol 135 mg/dL (<200) 10/25/20 05:00 HDL Cholesterol 39 mg/dL (40-60) L 10/25/20 05:00 Cholesterol/HDL Ratio 3.46 10/25/20 05:00 Home Medications: Amlodipine [Norvasc*] 10 mg PO DAILY #30 tab 10/25/20 Aspirin [Aspirin EC 81 MG] 81 mg PO DAILY #30 tablet. 10/25/20 Hydralazine HCl 50 mg PO TID #90 tablet 10/25/20 New Medications: Aspirin [Aspirin EC 81 MG] 81 mg PO DAILY #30 tablet. Hydralazine HCl 50 mg PO TID #90 tablet Amlodipine [Norvasc*] 10 mg PO DAILY #30 tab Physician Discharge Instructions: Recommend follow up with PCP in 1 week to follow up this hospitalization. Patient presented with chest pain and elevated blood pressure. Patient with history of hypertension. Patient ran out of medication. The patient was admitted for further evaluation and treatment. Initial troponin 0.05. Repeat troponin thereafter were within normal range. EKG showed LV strain. Patient was started on Norvasc and hydralazine for better blood pressure control. Pressure improved. Patient previously on lisinopril hydrochlorothiazide 10/12.5 mg daily. Chest x-ray unremarkable. CT head unremarkable. Patient has done well. Blood pressure better controlled. At discharge patient will continue with Norvasc 10 mg 1 pill daily and hydralazine 50 mg 1 pill 3 times a day. Lisinopril hydrochlorothiazide has been discontinued. Recommend to monitor blood pressures at least once daily. May need to hold medication if blood pressure systolic less than 110. Recommend to maintain blood pressure less than 130/80. Further adjustment in medication can be done by his PCP. Recommend follow up with PCP in 1 week to follow up this hospitalization. Will recommend to continue aspirin 81 mg daily. Will also recommend that the patient establish care with Cardiology as an outpatient for better blood pressure control and for outpatient cardiac evaluation(to include echocardiogram, cardiac stress test). Diet: AHA Activity: Ad aliyah Followup: Juan Clifford DO [Primary Care Provider] - Time spent managing pt's care (in minutes): 55
[2020-10-25] MEDS ORDERED: TRAMADOL HCL 50 MG TAB ONE (13:14)
[2020-10-25] MEDS ORDERED: HYDROCODONE/APAP 7.5/325 MG TAB PO PRN (16:17)
[2020-10-25] MEDS ORDERED: HYDRALAZINE HCL 20 MG/ML VIAL ONE (16:24)
--- NOTE | 2020-10-25 16:42 | RAD REPORT ---
EXAM DESCRIPTION: CT - Head Brain Wo Cont - 10/25/2020 4:19 pm CLINICAL HISTORY: continued headache, hypertension COMPARISON: Head Brain Wo Cont dated 10/24/2020 TECHNIQUE: Axial 5 mm thick images of the head were obtained without IV contrast. All CT scans are performed using dose optimization technique as appropriate and may include automated exposure control or mA/KV adjustment according to patient size. FINDINGS: No intracranial hemorrhage, mass, edema or shift of mid-line structures. No acute infarcti on changes seen. No abnormal extra-axial fluid collections. Ventricles are normal. Mastoid air cells are clear. No acute paranasal sinus finding. No acute bony findings. IMPRESSION: Negative non-contrast CT head examination for acute finding or significant interval [facility] from October 24. .
[2020-10-25] MEDS ORDERED: ACETAMINOPHEN 500 MG TAB ONE (17:03)
--- NOTE | 2020-10-25 17:15 | P.PN ---
Subjective Date of Service: 10/25/20 Primary Care Provider: Dr. Clifford Chief Complaint: Chest Pain Subjective: Other (Blood pressure is still elevated) Physical Examination - Vital Signs Temperature: 98.0 F Blood Pressure: 197/109 Pulse: 84 Respirations: 17 Pulse Ox (%): 98 - Physical Exam General: Alert, Cooperative HEENT: Atraumatic Neck: Supple Respiratory: Clear to auscultation bilaterally Cardiovascular: Normal pulses Neurological: Normal speech, Normal strength at 5/5 x4 extr, Normal tone, Normal affect - Studies Laboratory Data (last 24 hrs) 10/24/20 19:50: PT 10.9, INR 0.92 10/24/20 19:50: WBC 12.00 H, Hgb 15.4, Hct 46.7, Plt Count 217 10/24/20 19:50: Sodium 140, Potassium 3.8, BUN 18, Creatinine 1.63 H, Glucose 113 H, Magnesium 2.4, Total Bilirubin 0.3, AST 17, ALT 29, Alkaline Phosphatase 84 Medications List Reviewed: Yes Assessment & Plan Discharge Plan: Home Plan to discharge in: 24 Hours Physician Review Additional Text: Impression: Chest pain with Hypertensive urgency Plan: Will hold discharge at this time for better blood pressure control. Adjustments in medication made. Discontinue Norvasc. Changed to metoprolol, lisinopril and hydralazine. Continue monitor closely. Will order echocardiogram to further evaluate. Will also consult Cardiology for recommendation. Continue to monitor Overnite. Repeat CT head unremarkable. Maintain blood pressure around 150-170 systolic. Time Spent Managing Pts Care (In Minutes): 55
[2020-10-25] MEDS: METOPROLOL TAR 25 MG TAB PO SCH (18:00)
[2020-10-25] MEDS ORDERED: METOPROLOL TAR 25 MG TAB ONE (18:33)
[2020-10-25] MEDS ORDERED: lisinopriL 20 MG TAB PO SCH (21:00)
[2020-10-25] MEDS ORDERED: FLUTICASONE 50MCG NASAL SPRAY NAS SCH (21:00)
[2020-10-25] MEDS ORDERED: ATORVASTATIN 40 MG TAB PO SCH (21:00)
[2020-10-25] MEDS ORDERED: ATORVASTATIN 20 MG TAB ONE (23:36)
[2020-10-25] MEDS ORDERED: lisinopriL 20 MG TAB ONE (23:37)
[2020-10-26 00:09] VITALS: BMI 52.1
[2020-10-26 03:24] VITALS: TEMP 98.8
[2020-10-26] MEDS: METOPROLOL TAR 25 MG TAB PO SCH (06:00)
[2020-10-26 06:18] VITALS: BP 134/73
[2020-10-26] MEDS ORDERED: METOPROLOL TAR 25 MG TAB ONE (06:22)
--- NOTE | 2020-10-26 07:16 | P.DS ---
Admission Date: 10/24/20 Discharge Date: 10/26/20 Primary Care Provider: Dr. Clifford Disposition: ROUTINE DISCHARGE Discharge Condition: GOOD Reason for Admission: Chest Pain Consultations: none Procedures: COVID: Positive CT Head: No acute abnormality. No significant fluid in the sinuses. Mucous retention cyst to the left maxillary sinus CXR: Unremarkable. No infiltrate noted. ECHO: Recommend to be done as an outpatient. Medical Problem List: Chest pain with uncontrolled hypertension COVID 19 positive, asymptomatic Allergic rhinitis Headache related to nitro paste Obstructive sleep apnea Brief History of Present Illness: 39-year-old male with history of hypertension presented to the emergency room with chest pain and elevated blood pressure. Patient reports headache is well. He denies any nausea, vomiting. Patient ran out of his blood pressure medications. Patient admitted for further evaluation and treatment. Hospital Course: Patient presented with chest pain and elevated blood pressure. Patient with history of hypertension. Patient ran out of medication. The patient was admitted for further evaluation and treatment. Initial troponin 0.05. Repeat troponin thereafter were within normal range. EKG showed LV strain. Patient was started on Norvasc and hydralazine for better blood pressure control. Medications were further adjusted. Norvasc was discontinued. Metoprolol was added along with lisinopril. Patient had headaches related to nitro paste. Nitro paste removed, headaches resolved. Repeat CT head was unremarkable. Troponin remained in the normal range. Blood pressure improved with lisinopril, metoprolol and hydralazine. Patient previously on lisinopril hydrochlorothiazide 10/12.5 mg daily at home. Chest x-ray unremarkable. Patient has done well. Patient was kept Overnite to make sure blood pressure improved. Blood pressure now within normal range. At discharge lisinopril hydrochlorothiazide has been discontinued. At discharge patient will continue with lisinopril 20 mg 1 pill twice daily, metoprolol 25 mg 1 pill twice daily, and hydralazine 50 mg 1 pill 3 times a day. Recommend to monitor blood pressure daily. Recommend to maintain blood pressure less than 130/80. May need to hold medication if blood pressure less than 110 systolic or heart rate less than 50. Patient should follow up with his PCP this week to follow up this hospitalization and further adjust medication if required. Will recommend to continue aspirin 81 mg daily as well. Patient should establish care with Cardiology as an outpatient for better blood pressure control and for outpatient cardiac evaluation(to include echocardiogram, cardiac stress test) due to his risk factors. Patient likely with allergic rhinitis. Recommend Flonase 1 spray per nostril twice daily. Patient with history of obstructive sleep apnea. Patient will continue with CPAP at night. Vital Signs/Physical Exam: Temp Pulse Resp BP Pulse Ox 98.8 F 68 21 H 134/73 96 10/26/20 03:23 10/26/20 06:00 10/26/20 03:23 10/26/20 06:00 10/26/20 03:23 General: Alert, In no apparent distress, Oriented x3, Cooperative HEENT: Atraumatic Neck: Supple Respiratory: Clear to auscultation bilaterally, Normal air movement Cardiovascular: Normal pulses, Regular rate/rhythm Gastrointestinal: Normal bowel sounds, Soft and benign, Non-distended Integumentary: No tenderness/swelling, No erythema, No warmth, No cyanosis Neurological: Normal speech, Normal strength at 5/5 x4 extr, Normal tone Laboratory Data at Discharge: WBC 13.60 K/uL (4.3-10.9) H 10/25/20 05:00 Hgb 15.4 g/dL (13.6-17.9) 10/25/20 05:00 Hct 47.9 % (39.6-49.0) 10/25/20 05:00 Plt Count 234 K/uL (152-406) 10/25/20 05:00 PT 10.9 SECONDS (9.5-12.5) 10/24/20 19:50 INR 0.92 10/24/20 19:50 Sodium 137 mmol/L (136-145) 10/25/20 05:00 Potassium 4.1 mmol/L (3.5-5.1) 10/25/20 05:00 BUN 16 mg/dL (7-18) 10/25/20 05:00 Creatinine 1.46 mg/dL (0.55-1.3) H 10/25/20 05:00 Glucose 134 mg/dL (74-106) H 10/25/20 05:00 Magnesium 2.4 mg/dL (1.8-2.4) 10/24/20 19:50 Total Bilirubin 0.6 mg/dL (0.2-1.0) 10/25/20 05:00 AST 14 U/L (15-37) L 10/25/20 05:00 ALT 28 U/L (12-78) 10/25/20 05:00 Alkaline Phosphatase 69 U/L (45-117) 10/25/20 05:00 Troponin I 0.03 ng/mL (0.0-0.045) 10/25/20 18:03 Triglycerides 73 mg/dL (<150) 10/25/20 05:00 Cholesterol 135 mg/dL (<200) 10/25/20 05:00 HDL Cholesterol 39 mg/dL (40-60) L 10/25/20 05:00 Cholesterol/HDL Ratio 3.46 10/25/20 05:00 Home Medications: Aspirin [Aspirin EC 81 MG] 81 mg PO DAILY #30 tablet. 10/25/20 Hydralazine HCl 50 mg PO TID #90 tablet 10/25/20 Fluticasone [Flonase 50MCG Nasal Ursa*] 1 sprays TISH BID #1 btl 10/26/20 Metoprolol Tartrate [Lopressor*] 25 mg PO BID 6AM 6PM #60 tab 10/26/20 lisinopriL [Prinivil*] 20 mg PO BID #60 tab 10/26/20 New Medications: Aspirin [Aspirin EC 81 MG] 81 mg PO DAILY #30 tablet. Fluticasone [Flonase 50MCG Nasal Ursa*] 1 sprays TISH BID #1 btl Hydralazine HCl 50 mg PO TID #90 tablet Metoprolol Tartrate [Lopressor*] 25 mg PO BID 6AM 6PM #60 tab lisinopriL [Prinivil*] 20 mg PO BID #60 tab Physician Discharge Instructions: Recommend follow up with PCP in 1 week to follow up this hospitalization. Patient presented with chest pain and elevated blood pressure. Patient with history of hypertension. Patient ran out of medication. The patient was admitted for further evaluation and treatment. Initial troponin 0.05. Repeat troponin thereafter were within normal range. EKG showed LV strain. Patient was started on Norvasc and hydralazine for better blood pressure control. Medications were further adjusted. Norvasc was discontinued. Metoprolol was added along with lisinopril. Patient had headaches related to nitro paste. Nitro paste removed, headaches resolved. Repeat CT head was unremarkable. Troponin remained in the normal range. Blood pressure improved with lisinopril, metoprolol and hydralazine. Patient previously on lisinopril hydrochlorothiazide 10/12.5 mg daily at home. Chest x-ray unremarkable. Patient has done well. Patient was kept Overnite to make sure blood pressure improved. Blood pressure now within normal range. At discharge lisinopril hydrochlorothiazide has been discontinued. At discharge patient will continue with lisinopril 20 mg 1 pill twice daily, metoprolol 25 mg 1 pill twice daily, and hydralazine 50 mg 1 pill 3 times a day. Recommend to monitor blood pressure daily. Recommend to maintain blood pressure less than 130/80. May need to hold medication if blood pressure less than 110 systolic or heart rate less than 50. Patient should follow up with his PCP this week to follow up this hospitalization and further adjust medication if required. Will recommend to continue aspirin 81 mg daily as well. Patient should establish care with Cardiology as an outpatient for better blood pressure control and for outpatient cardiac evaluation(to include echocardiogram, cardiac stress test) due to his risk factors. Patient likely with allergic rhinitis. Recommend Flonase 1 spray per nostril twice daily. Patient with history of obstructive sleep apnea. Patient will continue with CPAP at night. Diet: AHA Activity: Ad aliyah Followup: Juan Clifford DO [Primary Care Provider] - Time spent managing pt's care (in minutes): 55
[2020-10-26 09:51] VITALS: O2SAT 98
--- NOTE | 2020-10-26 12:55 | EKG ---
Test Date: 2020-10-25 Test Time: 17:39:42 City Controller: VIKKI MEASUREMENT RESULTS: Intervals: Rate: 81 SD: 144 QRSD: 102 QT: 424 QTc: 492 Reading: P: 47 SD: 144 QRS: -22 T: 105 INTERPRETIVE STATEMENTS: Normal sinus rhythm Possible Left atrial enlargement Left ventricular hypertrophy with repolarization abnormality Prolonged QT Abnormal ECG Compared to ECG 10/24/2020 19:34:07 Prolonged QT interval now present Electronically Signed On 10-26-20 12:53:19 PRODUCTION TECHNICIAN by Abhilash Sanon
== END 2020-10-26 09:37 | disposition home or self-care (01) | DRG 280 ==
LOC: ER 19:03 → ERHOLD 22:09
PROVIDERS: ADMIT Family Medicine; ATTEND Family Medicine
DX: I16.0 Hypertensive urgency (principal); I21.4 Non-ST elevation (NSTEMI) myocardial infarction; U07.1 COVID-19; Z68.43 Body mass index [BMI] 50.0-59.9, adult; E66.9 Obesity, unspecified; I10 Essential (primary) hypertension; G47.33 Obstructive sleep apnea (adult) (pediatric); N28.9 Disorder of kidney and ureter, unspecified; J30.9 Allergic rhinitis, unspecified; R51.9 Headache, unspecified; Z79.82 Long term (current) use of aspirin; Z79.899 Other long term (current) drug therapy; Z91.14 Patient's other noncompliance with medication regimen
CPT/HCPCS: 36415; 70450; 71045; 80048; 80053; 80061; 80076; 80307; 81003; 82550; 82553; 83735; 83880; 84484; 85025; 85610; 93005; 96374; 96375; 99285; J0360; J1200; J1650; J1940; J2270; J2405; J2765; U0003